=== PATIENT | male | born 1980 | race Caucasian/White ===

== ENCOUNTER 2019-03-14 11:08 | Inpatient (IN) | payer SELFPAY ==
[~2019-03-14] VITALS: Ht 172.7 cm; Wt 74.8 kg
[2019-03-14] MEDS ORDERED: ACET-2154 PO (11:23)
[2019-03-14] MEDS ORDERED: IV NORMAL SALINE 1000 ML BAG IV ONE ×3 (11:30→13:39)
[2019-03-14 11:56] LABS: BASOPHILS % (AUTO) 0.2 % (0.0-2.0); EOSINOPHILS # (AUTO) 0.1 K/uL (0.0-0.7); EOSINOPHILS % (AUTO) 0.7 % (0.0-7.0); HEMATOCRIT 44.2 % (36.7-47.1); HEMOGLOBIN 14.7 g/dL (12.5-16.3); LYMPHOCYTES # (AUTO) 1.8 K/uL (20.0-40.0); LYMPHOCYTES % (AUTO) 10.7 % (20.5-51.5); MEAN CORPUSCULAR HEMOGLOBIN 29.3 uug (23.8-33.4); MEAN CORPUSCULAR HGB CONC 33 g/dL (32.5-36.3); MEAN CORPUSCULAR VOLUME 88.2 fL (73.0-96.2); MONOCYTES # (AUTO) 1.2 K/uL (2.0-10.0); MONOCYTES % (AUTO) 6.8 % (0.0-11.0); NEUTROPHILS # (AUTO) 13.9 K/uL (1.8-8.9); NEUTROPHILS % (AUTO) 81.6 % (38.5-71.5); PLATELET COUNT (AUTO) 153 K/uL (152-348); RED BLOOD CELL COUNT(AUTO) 5.02 MIL/uL (4.06-5.63)
[2019-03-14 12:13] LABS: CREATININE 1.2 mg/dL (0.6-1.3); POTASSIUM 3.8 mmol/L (3.5-5.1)
[2019-03-14 12:25] LABS: BILIRUBIN,DIRECT 0.2 mg/dL (0.0-0.2); BILIRUBIN,TOTAL 0.7 mg/dL (0.2-1.0); TOTAL PROTEIN, SERUM 8.1 g/dL (6.4-8.2)
[2019-03-14 12:45] LABS: *BILIRUBIN,URIN NEGATIVE (NEGATIVE); *BLOOD, URINE NEGATIVE (NEGATIVE); *CLARITY,URINE CLEAR (CLEAR); *COLOR,URINE YELLOW (YELLOW); *KETONES,URINE NEGATIVE (NEGATIVE); *UROBILINOGEN,URINE 0.2 E.U./dl (NORMAL); LEUKOCYTE ESTERASE ,URINE NEGATIVE (NEGATIVE); NITRITE, URINE NEGATIVE (NEGATIVE); PH,URINE 8.5 (5.0-8.0); UGLUCOSE NEGATIVE (NEGATIVE)
[2019-03-14] MEDS ORDERED: CEFTRIAXONE 1 G in IV DEXTROSE 5% 50 ML IV ONE (12:45)
[2019-03-14] MEDS ORDERED: METRONIDAZOLE 500 MG/NS 100 ML PIGGYBACK IV ONE (12:45)
[2019-03-14] MEDS ORDERED: CEFTRIAXONE 1 G VIAL ONE (12:48)
[2019-03-14] MEDS ORDERED: METRONIDAZOLE 500 MG/NS 100ML 100 ML IV ONE (12:48)
[2019-03-14] MEDS ORDERED: METOCLOPRAMIDE HCL 10 MG/2 ML VIAL IV ONE (13:39)
[2019-03-14] MEDS ORDERED: NEOSTIGMINE METHYLSULFATE 10 MG/10 ML VIAL IM ONE (13:39)
[2019-03-14] MEDS ORDERED: PROPOFOL 200 MG/20 ML BOTTLE IV ONE (13:39)
[2019-03-14] MEDS ORDERED: ROCURONIUM BROMIDE 50 MG/5 ML VIAL IV ONE (13:39)
[2019-03-14] MEDS ORDERED: SEVOFLURANE 250 ML BOTTLE IH ONE (13:39)
[2019-03-14] MEDS ORDERED: CEFAZOLIN 1 G VIAL IM ONE (13:39)
[2019-03-14] MEDS ORDERED: ONDANSETRON 4 MG/2 ML VIAL IV ONE (13:39)
[2019-03-14] MEDS ORDERED: GLYCOPYRROLATE 0.2 MG/ML VIAL IJ ONE (13:39)
[2019-03-14] MEDS ORDERED: ACETAMINOPHEN 650 MG SUPP.RECT RC PRN (14:30)
[2019-03-14] MEDS ORDERED: IV D5/ 0.9% NACL 1,000 ML IV PRN (14:30)
[2019-03-14] MEDS ORDERED: MORPHINE SULFATE 2 MG/1 ML DISP.SYRIN IV PRN (14:30)
[2019-03-14] MEDS ORDERED: ONDANSETRON 4 MG/2 ML VIAL IV PRN ×2 (14:30→18:30)
[2019-03-14] MEDS ORDERED: MORPHINE SULFATE 4 MG/1 ML DISP.SYRIN IV PRN (14:45)
[2019-03-14] MEDS ORDERED: LIDOCAINE HCL 1% 20 ML VIAL ONE (15:35)
[2019-03-14] MEDS ORDERED: BUPIVACAINE/EPI PF 0.25% 30 ML VIAL ONE (15:36)
[2019-03-14] MEDS ORDERED: FENTANYL CITRATE 250 MCG/5 ML AMPUL ONE (15:38)
[2019-03-14] MEDS ORDERED: MIDAZOLAM HCL 2 MG/2 ML VIAL ONE (15:38)
[2019-03-14] MEDS ORDERED: ROCURONIUM BROMIDE 50 MG/5 ML VIAL ONE (15:39)
[2019-03-14 16:48] VITALS: BP 115/65
[2019-03-14] MEDS ORDERED: BACITRACIN ZINC OINT 15 GM TUBE ONE (17:15)
[2019-03-14] MEDS ORDERED: MEPERIDINE 25 MG/1 ML DISP.SYRIN ONE ×2 (17:47→17:51)
[2019-03-14] MEDS ORDERED: PIPERACILLIN SODIUM/TAZOBACTAM 3.375 G in IV DEXTROSE 5% 50 ML IV SCH (18:00)
[2019-03-14] MEDS ORDERED: IV LACTATED RINGERS SOLUTION 1,000 ML IV PRN (18:30)
[2019-03-14 18:47] VITALS: BP 114/38
[2019-03-14] MEDS: HYDROMORPHONE 1 MG/1 ML DISP.SYRIN IV PRN ×2 (20:00→23:57)
[2019-03-14 20:31] VITALS: BP 116/58
[2019-03-14] MEDS: PIPERACILLIN/TAZOBACTAM/D5W 3.375 G in IV DEXTROSE 5% 50 ML IV SCH (22:31)
[2019-03-15] MEDS: HYDROCODONE/APAP 10-325 MG TABLET PO PRN ×4 (04:18→15:51)
[2019-03-15 04:43] VITALS: BP 97/59
[2019-03-15] MEDS: PIPERACILLIN/TAZOBACTAM/D5W 3.375 G in IV DEXTROSE 5% 50 ML IV SCH ×2 (05:18→14:06)
[2019-03-15 07:02] LABS: BASOPHILS % (AUTO) 0.1 % (0.0-2.0); HEMATOCRIT 39.2 % (36.7-47.1); HEMOGLOBIN 13.2 g/dL (12.5-16.3); LYMPHOCYTES # (AUTO) 1.5 K/uL (20.0-40.0); LYMPHOCYTES % (AUTO) 8.1 % (20.5-51.5); MEAN CORPUSCULAR HEMOGLOBIN 29.1 uug (23.8-33.4); MEAN CORPUSCULAR HGB CONC 34 g/dL (32.5-36.3); MEAN CORPUSCULAR VOLUME 86.6 fL (73.0-96.2); MONOCYTES # (AUTO) 0.9 K/uL (2.0-10.0); MONOCYTES % (AUTO) 4.6 % (0.0-11.0); NEUTROPHILS % (AUTO) 87.2 % (38.5-71.5); PLATELET COUNT (AUTO) 137 K/uL (152-348); RED BLOOD CELL COUNT(AUTO) 4.53 MIL/uL (4.06-5.63); WHITE BLOOD COUNT (AUTO) 18.3 K/uL (3.6-10.2)
[2019-03-15 07:50] LABS: BILIRUBIN,TOTAL 0.9 mg/dL (0.2-1.0); CREATININE 1.3 mg/dL (0.6-1.3); MAGNESIUM 1.4 mg/dL (1.8-2.4); PHOSPHOROUS 3.1 mg/dL (2.5-4.9)
[2019-03-15] MEDS: PANTOPRAZOLE SODIUM 40 MG VIAL IV SCH (08:38)
[2019-03-15 11:41] VITALS: BP 95/62
[2019-03-15 15:26] VITALS: BP 112/71
[2019-03-15] MEDS: MAGNESIUM SULFATE/D5W 100 ML IV SCH (17:27)
[2019-03-15 20:24] VITALS: BP 117/72
[2019-03-16] MEDS ORDERED: ACETAMINOPHEN 325 MG TABLET PO PRN (04:30)
[2019-03-16 05:12] VITALS: BP 112/60
[2019-03-16] MEDS ORDERED: PIPERACILLIN SODIUM/TAZOBACTAM 3.375 G in IV DEXTROSE 5% 50 ML IV SCH (07:00)
[2019-03-16] MEDS ORDERED: PIPERACILLIN/TAZOBACTAM/D5W 3.375 G in IV DEXTROSE 5% 50 ML IV SCH (08:00)
[2019-03-16] MEDS: PANTOPRAZOLE SODIUM 40 MG VIAL IV SCH (08:20)
[2019-03-16 09:55] LABS: BASOPHILS % (AUTO) 0.3 % (0.0-2.0); EOSINOPHILS % (AUTO) 0.1 % (0.0-7.0); HEMATOCRIT 40.4 % (36.7-47.1); HEMOGLOBIN 13.4 g/dL (12.5-16.3); LYMPHOCYTES # (AUTO) 1.1 K/uL (20.0-40.0); MEAN CORPUSCULAR HEMOGLOBIN 29.6 uug (23.8-33.4); MEAN CORPUSCULAR HGB CONC 33 g/dL (32.5-36.3); MEAN CORPUSCULAR VOLUME 89.4 fL (73.0-96.2); MONOCYTES # (AUTO) 0.8 K/uL (2.0-10.0); MONOCYTES % (AUTO) 5.2 % (0.0-11.0); NEUTROPHILS # (AUTO) 13.4 K/uL (1.8-8.9); NEUTROPHILS % (AUTO) 87.4 % (38.5-71.5); PLATELET COUNT (AUTO) 140 K/uL (152-348); RED BLOOD CELL COUNT(AUTO) 4.51 MIL/uL (4.06-5.63); WHITE BLOOD COUNT (AUTO) 15.3 K/uL (3.6-10.2)
[2019-03-16 10:00] LABS: CREATININE 1.2 mg/dL (0.6-1.3); MAGNESIUM 2.1 mg/dL (1.8-2.4); PHOSPHOROUS 2.7 mg/dL (2.5-4.9); POTASSIUM 4.1 mmol/L (3.5-5.1)
[2019-03-16] MEDS ORDERED: CEPH-570 PO (11:02)
[2019-03-16] MEDS ORDERED: HYDR-3326 PO (11:02)
[2019-03-16 11:15] VITALS: BP 107/67
[2019-03-17] MEDS ORDERED: PANTOPRAZOLE SODIUM 40 MG TABLET.DR PO SCH (07:00)
== END 2019-03-16 11:45 | disposition home or self-care (01) | DRG 340 ==
LOC: ER 11:52 → MEDSURG3 13:27
PROVIDERS: ADMIT Internal Medicine; ATTEND Internal Medicine
PROC: 0DTJ4ZZ Resection of Appendix, Percutaneous Endoscopic Approach (ICD-10-PCS; principal; 2019-03-14)
DX: K35.33 Acute appendicitis with perforation, localized peritonitis, and gangrene, with abscess (principal); E83.42 Hypomagnesemia; Z91.14 Patient's other noncompliance with medication regimen
CPT/HCPCS: 36415; 83690; 83735; 84100; 85025; 85730; A4663; C9113; G0378; J0690; J0696; J1170; J2175; J2250; J2270; J2405; J2543; J2710; J2765; J3010; J3475; J3490; J7030; J7042; J7060; J7120

== ENCOUNTER 2019-03-24 11:16 | Emergency (ER) | payer SELFPAY ==
[~2019-03-24] VITALS: Ht 172.7 cm; Wt 74.8 kg
[~2019-03-24 11:16] MED LIST: ACET-2154 PO; CEPH-570 PO; HYDR-3326 PO
--- NOTE | 2019-03-24 11:24 | NUR ---
at bedside to see and examine patient.
--- NOTE | 2019-03-24 11:31 | NUR ---
suture from lower abdominal area removed. no s/s of complications noted.
--- NOTE | 2019-03-24 11:35 | NUR ---
DCD instructions given to pt. who verbalized understanding. Patient left room no c/of any discomfort.
== END 2019-03-24 11:41 | disposition home or self-care (01) ==
LOC: ER 11:16
DX: Z48.01 Encounter for change or removal of surgical wound dressing (principal); Z90.49 Acquired absence of other specified parts of digestive tract; Z88.6 Allergy status to analgesic agent; Z88.8 Allergy status to other drugs, medicaments and biological substances; Z79.2 Long term (current) use of antibiotics; Z79.899 Other long term (current) drug therapy
CPT/HCPCS: A4663